=== PATIENT | female | born 1985 | race Caucasian/White ===

== ENCOUNTER → 2019-09-17 10:28 | Outpatient (CLI) | payer OTHER, SELFPAY ==
--- NOTE | 2019-09-17 10:37 | RAD_ITS ---
STUDY: X-RAY - RIGHT FOOT CLINICAL: Female, 34 years old. Lateral foot pain s/p running -- painful to bear weight TECHNIQUE: 3 view(s) of the foot. COMPARISON: None. FINDINGS: Normal talus, calcaneus, and tarsal bones. Normal visualized subtalar, talonavicular, calcaneocuboid, tarsal and tarsometatarsal articulations. Normal metatarsi. Normal metatarsophalangeal joint of the great toe. Normal tibial and fibular sesamoid bones. Normal interphalangeal joint of the great toe. Normal phalanges of the great toe. Normal second through fifth metatarsophalangeal joints. Normal interphalangeal joints and phalanges of the lesser toes. The soft tissue structures are unremarkable. RAD/Foot min 3 Views IMPRESSION: Normal x-ray examination of the foot. Electronically Signed: Franko Nino, at 10:56 EDT , Service support ,
== END ==
PROVIDERS: Visit Provider Emergency Medicine
DX: M79.671 Pain in right foot (principal)
CPT/HCPCS: 73630

== ENCOUNTER → 2020-03-27 08:06 | Outpatient (CLI) | payer OTHER, SELFPAY ==
[2020-03-27 12:57] LABS: Absolute Lymphocyte Count 2.72 X10^3/uL (0.83-4.51); Absolute Neutrophil Count 4.4 X10^3/uL (2.0-7.7); Basophil# 0.03 X10^3/uL; Basophil% 0.4 % (0-1); Eosinophil# 0.08 X10^3/uL; Hematocrit 42.1 % (37-47); Hemoglobin 13.2 g/dL (12.0-15.0); Lymphocyte # 2.72 X10^3/ul (4.0); Lymphocyte % 33.9 % (19-41); Mean Corp Hgb Conc 31.4 g/dL (32-36); Mean Corpuscular Hgb 29.7 pg (27.0-32.0); Mean Corpuscular Volume 94.6 fL (81-99); Mean Platelet Vol. 11.2 fl (6.2-12.0); Monocyte# 0.76 X10^3/uL; Monocyte% 9.5 % (0-10); NRBC Flagged by Analyzer 0 % (0-5); Neutrophil # 4.42 X10^3/uL (2.7-7.7); Platelet Count 335 K/mm3 (150-450); RBC Distribution Width CV 13.1 % (11.6-14.6); RBC Distribution Width SD 44.8 fl (35.1-43.9); Red Blood Count 4.45 M/mm3 (4.2-5.4)
[2020-03-27 13:09] LABS: ALB/GLOB Ratio 1.1 RATIO (0.9-2.4); AST(SGOT) 17 U/L (15-37); Alanine Aminotransfer ALT/SGPT 27 U/L (13-56); Albumin, Serum 4.1 g/dL (3.2-5.0); Alkaline Phosphatase 51 U/L (45-117); Anion Gap 4 (5-15); BUN 20 mg/dL (7-18); BUN/Creat Ratio 23.3 RATIO (10-20); Calcium,Total 9.1 mg/dL (8.5-10.1); Chloride 108 mmol/L (98-107); Creatinine, Serum 0.86 mg/dL (0.55-1.02); EST Glomerular Filtration Rate 81 mL/min (>60); Est Glom Filt Rate - Afr Amer 98 mL/min (>60); Globulin 3.7 g/dL (2.2-4.2); Glucose 91 mg/dL (74-106); Magnesium 2.1 mg/dL (1.6-2.6); Potassium 4.3 mmol/L (3.5-5.1); Protein, Total 7.8 g/dL (6.4-8.2); Sodium Level 140 mmol/L (136-145); Thyroid Stim Hormone (TSH) 5.66 uIU/mL (0.358-3.74)
[2020-03-27 19:02] LABS: T4 Free Direct 0.92 ng/dL (0.76-1.46)
== END ==
PROVIDERS: PCP Internal Medicine; Referring Provider Nurse Practitioner Family; Visit Provider Nurse Practitioner Family
DX: R00.0 Tachycardia, unspecified (principal); R06.02 Shortness of breath; R07.9 Chest pain, unspecified; R79.89 Other specified abnormal findings of blood chemistry; Z86.19 Personal history of other infectious and parasitic diseases
CPT/HCPCS: 36415; 80053; 83735; 84439; 84443; 85025

== ENCOUNTER → 2020-03-27 08:35 | Outpatient (CLI) | payer OTHER, SELFPAY ==
[2020-03-27 08:29] VITALS: BMI 28.1
--- NOTE | 2020-03-27 08:42 | EKG12_ITS ---
Test Reason : CHEST PRESSURE Blood Pressure : / mmHG Vent. Rate : 072 BPM Atrial Rate : 072 BPM P-R Int : 114 ms QRS Dur : 080 ms QT Int : 378 ms P-R-T Axes : 024 066 011 degrees QTc Int : 413 ms Normal sinus rhythm Normal ECG Confirmed by YESY FERRARI, ABDELRAHMAN ([id number]), sound editor NO SRIVASTAVA ([id number]) on 03/30/2020 1:25:59 PM Referred By: Miguel Hurt Confirmed By:ABDELRAHMAN HAYWARD MD
--- NOTE | 2020-03-27 08:42 | CT_ITS ---
STUDY: CTA CHEST REASON FOR EXAM: Female, 34 years old. SOB/CP COVID POSITIVE 3 WEEKS AGO RADIATION DOSAGE (If Supplied By Facility): CTDIvol = ( 11.05 ) mGy, DLP = ( 391.05 ) mGycm TECHNIQUE: The examination was performed with the intravenous administration of IV 100mL Isovue-370. Post-processing of the angiographic images was performed, with multiplanar reformation and 3D reconstruction. Individualized dose optimization techniques were used for this CT. COMPARISON: None. FINDINGS: Normal enhancement of the main pulmonary artery and right and left pulmonary arteries. Normal enhancement of the bilateral peripheral pulmonary arteries. There is no demonstrated pulmonary embolism. Normal thoracic aorta and visualized great vessels. There is no demonstrated aortic dissection. Normal heart and pericardium. Normal mediastinum. Normal hilar regions. Normal visualized trachea and bronchi. The lungs are well expanded. Normal pulmonary parenchyma. Normal pleura. Normal chest wall structures. Normal osseous structures. Normal visualized upper abdomen. CT/CTA Chest W/WO Contrast IMPRESSION: Normal CTA chest examination, without a demonstrated pulmonary embolism or arterial dissection. Electronically Signed: José Toro MD at 9:49 EST Tel , Service support ,
--- NOTE | 2020-03-27 09:39 | EKG12_ITS ---
Test Reason : CHEST PRESSURE Blood Pressure : / mmHG Vent. Rate : 072 BPM Atrial Rate : 072 BPM P-R Int : 114 ms QRS Dur : 080 ms QT Int : 364 ms P-R-T Axes : 031 066 005 degrees QTc Int : 398 ms Normal sinus rhythm Normal ECG Confirmed by YESY FERRARI, ABDELRAHMAN ([id number]), manager editorial JOHANNA HOLLIDAY ([id number]) on 03/31/2020 9:50:11 AM Referred By: Miguel Hurt Confirmed By:ABDELRAHMAN HAYWARD MD
[2020-03-27 09:54] LABS: D-Dimer Quantitative (DVT/PE) 0.35 FEU/ug/m (0.27-0.49)
== END ==
PROVIDERS: PCP Internal Medicine; Referring Provider Nurse Practitioner Family; Visit Provider Nurse Practitioner Family
DX: R07.9 Chest pain, unspecified (principal); R00.0 Tachycardia, unspecified; R06.00 Dyspnea, unspecified; Z86.19 Personal history of other infectious and parasitic diseases
CPT/HCPCS: 71275; 85379; 93005; Q9967

== ENCOUNTER → 2020-04-03 12:10 | Outpatient (CLI) | payer OTHER, SELFPAY ==
[2020-03-27 08:29] VITALS: BMI 28.1
== END ==
PROVIDERS: PCP Internal Medicine; Referring Provider Nurse Practitioner Family; Visit Provider Nurse Practitioner Family
DX: R07.9 Chest pain, unspecified (principal); R00.0 Tachycardia, unspecified; R06.00 Dyspnea, unspecified; E03.9 Hypothyroidism, unspecified
CPT/HCPCS: 93225; 93226

== ENCOUNTER 2020-04-12 18:01 | Observation (INO) | payer OTHER, SELFPAY ==
[2020-03-27 08:29] VITALS: BMI 28.1
[2020-04-12] VITALS (8 sets, daily range): BP systolic 113–140; BP diastolic 76–90; PULSE 69–92; RESP 14–18; TEMP 36.2–36.7; O2SAT 97–99; BMI 29.4; BMI 29.8
--- NOTE | 2020-04-12 18:15 | RAD_ITS ---
STUDY: X-RAY CHEST REASON FOR EXAM: Female, 34 years old. CHEST HEAVINESS AND TIGHTNESS, RADIATING INTO LEFT ARM TECHNIQUE: Frontal view COMPARISON: None. FINDINGS: The lungs are clear and expanded. There is no demonstrated pleural abnormality. Normal size heart. Normal mediastinum and ron. Normal visualized pulmonary arteries. Normal visualized aortic arch and descending thoracic aorta. Normal visualized thoracic spine. Normal visualized ribs, clavicles, and shoulders. There is no demonstrated abnormality of the visualized soft tissue structures of the upper abdomen. RAD/Chest 1 View (Portable) IMPRESSION: Normal x-ray examination of the chest. Electronically Signed: Ketan Ma DO at 19:50 EST Tel [phone], Service support ,
--- NOTE | 2020-04-12 18:15 | EKG12_ITS ---
Test Reason : CP Blood Pressure : / mmHG Vent. Rate : 093 BPM Atrial Rate : 093 BPM P-R Int : 122 ms QRS Dur : 086 ms QT Int : 348 ms P-R-T Axes : 067 076 016 degrees QTc Int : 432 ms Normal sinus rhythm Possible Left atrial enlargement Borderline ECG Confirmed by ERIN FERRARI, LV ([id number]), sound editor BRIDGETT JEFFRIES ([id number]) on 04/14/2020 9:19:34 AM Referred By: SIL Confirmed By:LV KHAN MD
[2020-04-12] MEDS: Aspirin 81 MG TAB.CHEW 324 MG PO (18:23)
[2020-04-12] MEDS: Ondansetron 4 MG/2 ML Vial IV (18:26)
[2020-04-12] MEDS: Morphine 4 MG/ML Syringe IV (18:26)
[2020-04-12] MEDS: 0.9% Normal Saline 1,000 ML 150 ML IV (18:26)
[2020-04-12 18:29] LABS: Absolute Lymphocyte Count 3.79 X10^3/uL (0.83-4.51); Absolute Neutrophil Count 4.3 X10^3/uL (2.0-7.7); Basophil# 0.05 X10^3/uL; Basophil% 0.5 % (0-1); Eosinophil# 0.13 X10^3/uL; Eosinophils% 1.4 % (0-5); Hematocrit 40.6 % (37-47); Hemoglobin 12.9 g/dL (12.0-15.0); Lymphocyte # 3.79 X10^3/ul (4.0); Lymphocyte % 40.7 % (19-41); Mean Corp Hgb Conc 31.8 g/dL (32-36); Mean Corpuscular Hgb 29.7 pg (27.0-32.0); Mean Corpuscular Volume 93.3 fL (81-99); Mean Platelet Vol. 10.5 fl (6.2-12.0); Monocyte# 1.01 X10^3/uL; Monocyte% 10.8 % (0-10); NRBC Flagged by Analyzer 0 % (0-5); Neutrophil # 4.31 X10^3/uL (2.7-7.7); Neutrophil % 46.4 % (47-70); Platelet Count 393 K/mm3 (150-450); RBC Distribution Width CV 13.1 % (11.6-14.6); RBC Distribution Width SD 45.1 fl (35.1-43.9); Red Blood Count 4.35 M/mm3 (4.2-5.4); White Blood Count 9.3 K/mm3 (4.4-11.0)
[2020-04-12 18:34] LABS: D-Dimer Quantitative (DVT/PE) 0.31 FEU/ug/m (0.27-0.49)
[2020-04-12 19:03] LABS: Anion Gap 5 (5-15); BUN 17 mg/dL (7-18); BUN/Creat Ratio 22.3 RATIO (10-20); Calcium,Total 8.4 mg/dL (8.5-10.1); Chloride 109 mmol/L (98-107); Creatinine, Serum 0.76 mg/dL (0.55-1.02); EST Glomerular Filtration Rate 92 mL/min (>60); Est Glom Filt Rate - Afr Amer 112 mL/min (>60); Estimated Creatinine Clearance 106.21 ml/min; Glucose 126 mg/dL (74-106); Potassium 3.7 mmol/L (3.5-5.1); Sodium Level 142 mmol/L (136-145); Thyroid Stim Hormone (TSH) 2.98 uIU/mL (0.358-3.74)
[2020-04-12 19:13] LABS: Internal QC Validated? YES +Cl - CLEAR BKGD
[2020-04-12 19:15] LABS: Pregnancy, Serum, hCG Quali. NEGATIVE Negative
--- NOTE | 2020-04-12 19:29 | ED.VISSUMM ---
- ER Visit Summary Date of Service: 04/12/20 Chief Complaint: Chest pain History of Present Illness: The patient is a [address] Villagran. 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 States that ever since then she has had intermittent chest pain. States that this is an intermittent pain that lasts hours at a time. Most recent episode began at 8:00 this morning while she was at rest. Says sharp squeezing pain with ration down her left arm. Is 9-10 at worst and 6 out of 10 currently. Is worsened by exertion. Is unchanged with breathing. Is relieved by nothing. She reports she is diaphoretic and short of breath with this. She also complains of lightheadedness and palpitations. Patient reports that she turned in her Holter monitor 6 days ago and began metoprolol 3 days ago. Physical Examination: Vitals: Stable. Afebrile. General: Well-nourished and well-developed. Head: Normocephalic atraumatic. Neck: Supple, no lymphadenopathy. No JVD. Nontender. Cardiovascular: Regular rate and rhythm. No murmurs. Respiratory: No respiratory distress. Clear to auscultation bilaterally. Abdominal: Soft, nontender, nondistended, normal bowel sounds. No guarding, rebound, or peritoneal signs. Back: Nontender. Extremities: Nontender, no edema. Skin: Normal color, no rash. Neurologic: Alert and oriented ?3. Cranial nerves II through XII are intact. Normal strength and sensation. Psych: Normal affect. Test Results: EKG is sinus at [address] depression inferiorly. This is unchanged from earlier this month. Troponin is negative. D-dimer is negative. test is negative. Chem-7 shows a chloride of 109, glucose 126, calcium 8.4. CBC shows segmented neutrophils of 46 lymphocytes of 11. TSH is 2.98. Chest x-ray is normal. Emergency Department Course and Treatment: Patient was treated with aspirin p.o. as well as morphine and Zofran IV. She is resting more comfortably. Treatment Plan: Patient was discussed with the hospitalist. She will be admitted for further evaluation and treatment. Disposition: Admitted in stable condition. Impression: 1. Chest pain. This note was generated with [employer] software. It may contain incorrect words, spelling, and punctuation that were not noted in review of the chart prior to signing
--- NOTE | 2020-04-12 19:50 | PCM.HP.STD ---
History of Present Illness Date of Admission: 04/12/20 Chief Complaint: Chest pain The patient is a 34 year old F with a PMH as below who presents to the hospital with chest pain. She was diagnosed with Covid on March 04 and since then has had intermittent episodes of chest pain with possible palpitations. She did have a Holter monitor as an outpatient which was completed about 6 days ago and she does not have the report yet. She says this morning she had chest pain that occurred while at rest and it was a squeezing pain that radiated down her left arm. She has not noticed any significant difference with exertion and she does have episodes of shortness of breath with it. Nothing is really made it better. In the ER EKG was unchanged from , with slight ST depressions in the inferior leads.. Initial troponin was unremarkable and her other lab work were normal. Past Medical History Allergies No Known Allergies Allergy (Unverified 03/26/20 15:43) Home Medications: Ambulatory Orders Medication Instructions Recorded multivitamin 1 tab PO DAILY 03/26/20 albuterol sulfate 90 mcg/actuation 1 - 2 puff INHALATION Q6H PRN #8.5 03/27/20 aerosol inhaler g aspirin 81 mg tablet,delayed 81 mg PO DAILY 04/08/20 release levothyroxine 25 mcg tablet 25 mcg PO DAILY #90 tab 04/08/20 metoprolol tartrate 25 mg tablet 12.5 mg PO BID #60 tab 04/08/20 Surgical History: Surgical History (Last Updated 03/26/20 @ 15:44 by Naya Espinal) Hx LEEP (loop electrosurgical excision procedure), cervix, O34.40, Z98.890 Smoking Status: Never smoker Alcohol: None Drugs: None - *Family History Maternal Family History: Family History (Last Updated 03/26/20 @ 15:47 by Naya Espinal) Father Hypertension Uncle Hypertension Thyroid disorder Mental disorders Aunt Heart disease Grandfather Heart disease Grandmother Heart disease Breast cancer Sister Blood clots Other Alcoholism Review of Systems Constitutional: Denies: Chills, Fever, Weight Change HEENT: Denies: Head Aches, Sinus Congestion, Sinus Drainage Cardiovascular: Reports: Chest Pain. Denies: Palpitations Respiratory: Reports: Shortness of Breath. Denies: Cough, Shortness of breath at rest, Sputum production Gastrointestinal: Denies: Abdominal Pain, Nausea, Vomiting Genitourinary: Denies: Dysuria Musculoskeletal: Denies: Joint Pain, Joint Tenderness Skin: Denies: Rash, Wounds Neurological: Denies: Numbness, Tingling, Focal weakness Psychiatric: Denies: Anxiety, Depression Hematologic/ Lymphatic: Denies: Easy Bruising, Easy Bleeding VTE Information - Inpt Only VTE Present on Admission: No - Physical Exam Vitals/I&O's: Vital Signs Temp Pulse Resp BP Pulse Ox 97.5 F L 87 16 113/76 98 04/12/20 19:19 04/12/20 19:19 04/12/20 19:19 04/12/20 19:19 04/12/20 19:19 Oxygen Delivery Method Room Air Weight: 193 lb 9.054 oz Body Mass Index (BMI) 29.4 General: Alert, Oriented x3, Cooperative, No apparent distress HEENT: Atraumatic, PERRLA, EOMI, Normocephalic Oral: Moist Mucosa Neck: Supple, No JVD Lungs: Clear to auscultation, Normal air movement, No rhonchi, No wheeze, No rales Cardiovascular: Regular rate, Regular Rhythm, Normal S1, Normal S2, No murmurs Abdomen: Soft, Non Tender, Non-Distended, No Hepato-splenomegaly Extremities: No edema, Capillary Refill Less than 3 Seconds Skin: No rashes, No breakdown Neurological: Neuro grossly intact, Sensory exam intact to light touch and pain Psych/Mental Status: Normal Affect, Appropriate Laboratory Results 04/12/20 18:00: D-Dimer Quant (PE/DVT) 0.31 04/12/20 18:00: Sodium Cancelled, Potassium Cancelled, Chloride Cancelled, Carbon Dioxide Cancelled, Anion Gap Cancelled, BUN Cancelled, Creatinine Cancelled, Estim Creat Clear Calc Cancelled, Est GFR (MDRD) Af Amer Cancelled, Est GFR (MDRD) Non-Af Cancelled, BUN/Creatinine Ratio Cancelled, Glucose Cancelled, Calcium Cancelled, Troponin I Cancelled, TSH Cancelled 04/12/20 18:00: Serum , Qual Cancelled 04/12/20 18:05: WBC 9.3, RBC 4.35, Hgb 12.9, Hct 40.6, MCV 93.3, MCH 29.7, MCHC 31.8 L, RDW Std Deviation 45.1 H, RDW Coeff of Samanta 13.1, Plt Count 393, MPV 10.5, Immature Gran % (Auto) 0.200, Neut % (Auto) 46.4 L, Lymph % (Auto) 40.7, [place] % (Auto) 10.8 H, Eos % (Auto) 1.4, Baso % (Auto) 0.5, Absolute Neuts (auto) 4.3, Absolute Lymphs (auto) 3.79, Nucleated RBC % 0 04/12/20 18:34: Sodium 142, Potassium 3.7, Chloride 109 H, Carbon Dioxide 28.0, Anion Gap 5, BUN 17, Creatinine 0.76, Estim Creat Clear Calc 106.21, Est GFR (MDRD) Af Amer 112, Est GFR (MDRD) Non-Af 92, BUN/Creatinine Ratio 22.3 H, Glucose 126 H, Calcium 8.4 L, Troponin I < 0.015, TSH 2.98 04/12/20 18:34: Serum , Qual NEGATIVE Current Medications Sodium Chloride () 1,000 mls @ 150 mls/hr IV .Q6H40M [facility] Last Admin: 04/12/20 18:26 Dose: 150 mls/hr Documented by: Assessment/Plan 1. Chest pain -She had an outpatient Holter monitor which has not been read yet, she says that her PCP told her that she had spent 7 hours in sinus tach but she is not sure if this was continuous or 7 hours total over the course of 2 days -We will obtain serial troponins -We will obtain an echo in the morning, if necessary can obtain a stress test and/or consult cardiology -She has a little bit of an elevated cholesterol, but there is no family history of significant cardiovascular or disease -Continue with aspirin and metoprolol 2. Hypothyroidism -TSH normal -Continue with Synthroid DVT: Low risk OBSV E&M: [id number] Initial observation care L2
--- NOTE | 2020-04-12 20:14 | EKG12_ITS ---
Test Reason : CP ADMIT Blood Pressure : / mmHG Vent. Rate : 070 BPM Atrial Rate : 070 BPM P-R Int : 114 ms QRS Dur : 074 ms QT Int : 398 ms P-R-T Axes : 020 070 011 degrees QTc Int : 429 ms Normal sinus rhythm Normal ECG Confirmed by YESY FERRARI, ABDELRAHMAN ([id number]), technical writer and editor BRIDGETT JEFFRIES ([id number]) on 04/15/2020 10:08:12 AM Referred By: DR CONNOR Confirmed By:ABDELRAHMAN HAYWARD MD
[2020-04-12] MEDS: Metoprolol Tartrate 25 MG Tablet 12.5 MG PO (22:02)
[2020-04-12] MEDS: MELATONIN 3 MG TABLET PO (22:03)
[2020-04-13] VITALS (11 sets, daily range): BP systolic 94–122; BP diastolic 62–75; PULSE 57–77; RESP 15–16; TEMP 36.8–36.9; O2SAT 98
[2020-04-13] MEDS: Nitroglycerin (INPATIENT USE) 0.4 MG TAB.SUBL SUBLINGUAL ×4 (00:21→05:02)
[2020-04-13] MEDS: hydrOXYzine 10 MG Tablet PO (02:35)
[2020-04-13] MEDS: Levothyroxine 25 MCG TABLET PO (05:06)
--- NOTE | 2020-04-13 05:55 | ECHOCS_ITS ---
Reason For Study: CP Procedure This was a 2D Doppler, Color Flow transthoracic echocardiogram. Contrast injection was performed. Residual artifact from Definity used on Stress Echo prior to 2D echo. Exam performed in department. Left Ventricle Normal LV size. Left ventricular systolic function is normal. The estimated ejection fraction is 65 %. Normal diastology for age. No regional wall motion abnormalities noted. Right Ventricle Normal RV size. Normal systolic function. Atria Normal left atrium. Normal right atrium. Mitral Valve Normal mitral valve. Tricuspid Valve Normal tricuspid valve. Mild tricuspid valve insufficiency. Pulmonary artery systolic pressure is 30 mmHg. Aortic Valve Normal aortic valve. Trisinus/trileaflet aortic valve. Pulmonic Valve Normal pulmonic valve. Great Vessels Normal aortic root. The pulmonary artery is normal size. Normal inferior vena cava. Pericardium/Pleural No pericardial effusion. Medication Diluted definity 2ml given slow IV push to enhance endocardial definition. MMode/2D Measurements & Calculations LVIDd: 4.2 cm IVSd: 1.0 cm Ao root diam: 2.7 cm LVIDs: 2.9 cm LVPWd: 0.93 cm LA dimension: 3.2 cm RVDd: 2.8 cm FS: 30.3 % LAV(MOD-bp): 39.7 ml LA A4 area: 15.5 cm2 RA A4 area: 14.9 cm2 LAV(MOD-bp) Indexed: 20.0 ml/m2 LAV(MOD-sp2): 37.7 ml LAV(MOD-sp4): 39.9 ml Time Measurements MV dec time: 0.25 sec Doppler Measurements & Calculations MV E max noe: 87.2 cm/sec Lat Peak E' Noe: 17.6 cm/sec Med Peak E' Noe: 15.3 cm/sec MV A max noe: 71.7 cm/sec E/E' lat: 5.0 E/E' med: 5.7 MV E/A: 1.2 MV V2 max: 100.1 cm/sec MV P1/2t max noe: 99.7 cm/sec Ao V2 max: 135.3 cm/sec MV max P.0 mmHg MV P1/2t: 42.2 msec Ao max P.3 mmHg MV V2 mean: 54.8 cm/sec MV dec slope: 690.9 cm/sec2 MV mean P.5 mmHg MV V2 VTI: 20.0 cm MVA(P1/2t): 5.2 cm2 LV V1 max: 118.1 cm/sec PA V2 max: 94.4 cm/sec TR max noe: 256.6 cm/sec LV V1 max P.6 mmHg TR max P.3 mmHg Interpretation Summary Normal LV size. Left ventricular systolic function is normal. The estimated ejection fraction is 65 %. Pulmonary artery systolic pressure is 30 mmHg. Normal diastology for age. Contrast injection was performed. Ordering Physician: Augustin Yung Performed By: Kenroy Zhou RCS
[2020-04-13 06:15] LABS: Absolute Lymphocyte Count 3.86 X10^3/uL (0.83-4.51); Absolute Neutrophil Count 3.7 X10^3/uL (2.0-7.7); Basophil# 0.04 X10^3/uL; Basophil% 0.5 % (0-1); Eosinophil# 0.09 X10^3/uL; Eosinophils% 1.1 % (0-5); Hematocrit 35.2 % (37-47); Hemoglobin 11.3 g/dL (12.0-15.0); Lymphocyte # 3.86 X10^3/ul (4.0); Lymphocyte % 46.3 % (19-41); Mean Corp Hgb Conc 32.1 g/dL (32-36); Mean Corpuscular Hgb 30.3 pg (27.0-32.0); Mean Corpuscular Volume 94.4 fL (81-99); Mean Platelet Vol. 9.8 fl (6.2-12.0); Monocyte# 0.65 X10^3/uL; Monocyte% 7.8 % (0-10); NRBC Flagged by Analyzer 0 % (0-5); Neutrophil # 3.67 X10^3/uL (2.7-7.7); Neutrophil % 43.9 % (47-70); Platelet Count 308 K/mm3 (150-450); RBC Distribution Width CV 13.2 % (11.6-14.6); RBC Distribution Width SD 45.4 fl (35.1-43.9); Red Blood Count 3.73 M/mm3 (4.2-5.4); White Blood Count 8.3 K/mm3 (4.4-11.0)
[2020-04-13 06:42] LABS: Anion Gap 2 (5-15); BUN 11 mg/dL (7-18); BUN/Creat Ratio 16.7 RATIO (10-20); Calcium,Total 8.5 mg/dL (8.5-10.1); Chloride 108 mmol/L (98-107); Cholesterol 205 mg/dL (200); Creatinine, Serum 0.66 mg/dL (0.55-1.02); EST Glomerular Filtration Rate 110 mL/min (>60); Est Glom Filt Rate - Afr Amer 133 mL/min (>60); Glucose 89 mg/dL (74-106); High Density Lipoprotein 53 mg/dL; Potassium 3.6 mmol/L (3.5-5.1); Sodium Level 137 mmol/L (136-145); Triglycerides 74 mg/dL; Very Low Density Lipoprotein 15 mg/dL (5-40)
--- NOTE | 2020-04-13 08:18 | STEWCON_ITS ---
Stress Results Protocol: Peewee Protocol WITH DEFINITY Maximum Predicted HR: 187 bpm Target HR: 159 bpm % Maximum Predicted HR: 96 % DurationHeart Rate Stage (mm:ss) (bpm) BP Comment baseline 68 108/70dull chest ache 3 out of 10, my left arm feels funny stage 1 3:00 125 110/68chest pressure 3/10 stage 2 3:00 144 110/70chest pressure 3/10 stage 3 3:00 169 112/74chest pressure 5/10, mild shortness of breath stage 4 0:51 179 / chest pressure 7/10, mild shortness of breath recovery 100 110/70chest pressure 6/10, shortness of breath resolved Stress Duration: 9:51 mm:ss Maximum Stress HR: 179 bpm Baseline Echocardiogram Findings Stress Echo Wall motion Data Resting WM Intermediate WM Stress WM Interpretation Summary Exercise stress echo. 34-year-old lady with a history of chest pain. Stress protocol: Resting EKG demonstrates normal sinus rhythm with a rate of 70 bpm no acute changes noted. The patient exercised according to regular Peewee protocol for a total duration of 9 minutes and 51 seconds. Patient completed 51 seconds into stage IV of the Peewee protocol. The maximum heart rate attained was 179 bpm which was 96% of max impacted heart rate the maximum workload was 12.9 metabolic equivalents. At rest there were no ST or T wave changes noted suggest ischemia peak exercise upsloping ST changes only were noted we did not meet the criteria for ischemia. No clinical angina was noted. The patient had a dull chest ache which was present at the beginning and persisted throughout with mild shortness of breath. No definitive angina was noted. Stress echocardiogram. The resting echocardiographic images obtained with Definity enhancement demonstrated an ejection fraction of 55% no wall motion abnormalities were noted the peak ejection fraction was noted to be 65 to 70% with no wall motion abnormalities present. No clinical ischemia was present. Conclusion: Normal exercise stress echo with no EKG or echocardiographic criteria for ischemia at a high workload. Excellent functional capacity. Chest discomfort of unknown significance. Ordering Physician: Karoline Metzger Referring Physician: Dr. Metzger Performed By: Kenroy Zhou RCS
[2020-04-13] MEDS: Aspirin E.C. 81 MG Tablet PO (08:44)
[2020-04-13] MEDS: Metoprolol Tartrate 25 MG Tablet 12.5 MG PO (11:04)
[2020-04-13] MEDS: Ibuprofen 600 MG Tablet PO (11:50)
[2020-04-13] MEDS: Acetaminophen 325 MG Tablet 650 MG PO (12:40)
--- NOTE | 2020-04-13 13:59 | DCINST_ITS ---
You will use the following diet at home:: Cardiac Your food should be the consistency of: Regular Your liquids should be the consistency of: Regular/Thin Discharge Activity: Return to Normal Activity Call your doctor if you observe: Shortness of breath, Chest pain Allergies/Adverse Reactions: Allergies No Known Allergies Allergy (Unverified 03/26/20 15:43) Medications to take at Discharge multivitamin 1 tab PO DAILY 03/26/20 albuterol sulfate 90 mcg/actuation aerosol inhaler 1 - 2 puff INHALATION Q6H PRN #8.5 g 03/27/20 aspirin 81 mg tablet,delayed release 81 mg PO DAILY 04/08/20 levothyroxine 25 mcg tablet 25 mcg PO DAILY #90 tab 04/08/20 metoprolol tartrate 25 mg tablet 12.5 mg PO BID #60 tab 04/08/20 Pantoprazole Sodium [Protonix] 40 mg PO DAILY #30 tab 04/13/20 The following prescriptions were given: Pantoprazole Sodium [Protonix] 40 mg PO DAILY #30 tab Transmission Status: Pending to [facility] Primary Care Physician: Phoenix Villagran MD [Primary Care Provider] - Please follow up with your Primary Care Physician in: 1 week Test Results: Test results from this visit will be discussed in further detail at your follow- up appointment, if applicable. Proposed Discharge Date: 04/13/20
--- NOTE | 2020-04-13 14:02 | DS.PCM_ITS ---
<Phil Harding - Last Filed: 04/13/20 14:02> Discharge Date and Diagnosis Date of Admission: 04/12/20 Date of Discharge: 04/13/20 - Primary Discharge Diagnosis Acute Problems: Chest pain - musculoskeletal Hospital Course and Treatment Imaging Results: DIAGNOSTICS: Stress echocardiogram. The resting echocardiographic images obtained with Definity enhancement demonstrated an ejection fraction of 55% no wall motion abnormalities were noted the peak ejection fraction was noted to be 65 to 70% with no wall motion abnormalities present. No clinical ischemia was present. Conclusion: Normal exercise stress echo with no EKG or echocardiographic criteria for ischemia at a high workload. Excellent functional capacity. Chest discomfort of unknown significance. RAD/Chest 1 View (Portable) IMPRESSION: Normal x-ray examination of the chest. Operations: None Procedures: Stress test Summary of Care Provided: Hospital Course: The patient is a 34 year old F with pmhx of hypothyroidism, nonspecific tachycardia, who presented to the ER with c/o chest pain. Since she had covid in february she has had intermittent chest pain. She had palpitations as well and had completed an outpatient holter monitor. Reportedly this showed sinus tachy and her PCP placed her on metoprolol. She was also found to have a mildly elevated TSH with normal t4 and was placed on synthroid. The patient reported that she had chest aching at rest and sometimes left arm pain and numbness. She had an EKG with no acute changes - slight ST depression in the inferior lead that was not new. Troponin was negative. CXR was clear. D Dimer was negative. She had recently had a CTA chest which was negative. She was admitted to the PCU and placed on tele. No events on tele. Trop neg x 3. The following day she had a stress echo which was negative. She reported that she would have chest pain when laying down in bed, and that she would wake up with a cough and mucus drainage, and also had some tenderness in the epigastric region on exam. She was therefore placed on a trial of protonix. Also of note she felt confident that she did not have any significant worsening of anxiety and no stressful events recently. She did not feel anxiety was a contributing factor to her chest pain. She will need follow up with her PCP in 1 week. She was discharged home in stable condition. This patient was seen by Phil Harding PA-C under the supervision of Dr. Metzger [] - Physical Exam Vitals/I&O's: Vital Signs Temp Pulse Resp BP Pulse Ox 98.5 F 77 15 115/71 98 04/13/20 08:45 04/13/20 11:04 04/13/20 08:45 04/13/20 11:04 04/13/20 08:45 Oxygen Delivery Method Room Air Weight: 196 lb 3.382 oz Body Mass Index (BMI) 29.8 Intake and Output for Last 24 Hours 04/11/20 04/12/20 04/13/20 23:59 23:59 23:59 Intake Total 1247.5 / 1247.5 900 / 900 Balance 1247.5 / 1247.5 900 / 900 General: Alert, Oriented x3, Cooperative HEENT: Atraumatic, PERRLA, EOMI, Normocephalic Neck: Supple, No JVD, Negative Carotid Bruits Lungs: Clear to auscultation, Normal air movement Cardiovascular: Regular rate, No murmurs Abdomen: Bowel Sounds Present, Soft, Non Tender Extremities: No edema, Capillary Refill Less than 3 Seconds Skin: No rashes, No breakdown Musculoskeletal: No Tenderness to Palpation of Joints or Extremities Neurological: Cranial nerves II-XII grossly intact Psych/Mental Status: Normal Affect, Appropriate, Alert and oriented to time, place, person, mood and affect Laboratory Results 04/12/20 18:00: D-Dimer Quant (PE/DVT) 0.31 04/12/20 18:00: Sodium Cancelled, Potassium Cancelled, Chloride Cancelled, Carbon Dioxide Cancelled, Anion Gap Cancelled, BUN Cancelled, Creatinine Cancelled, Estim Creat Clear Calc Cancelled, Est GFR (MDRD) Af Amer Cancelled, Est GFR (MDRD) Non-Af Cancelled, BUN/Creatinine Ratio Cancelled, Glucose Cancelled, Calcium Cancelled, Troponin I Cancelled, TSH Cancelled 04/12/20 18:00: Serum , Qual Cancelled 04/12/20 18:05: WBC 9.3, RBC 4.35, Hgb 12.9, Hct 40.6, MCV 93.3, MCH 29.7, MCHC 31.8 L, RDW Std Deviation 45.1 H, RDW Coeff of Samanta 13.1, Plt Count 393, MPV 10.5, Immature Gran % (Auto) 0.200, Neut % (Auto) 46.4 L, Lymph % (Auto) 40.7, Newberry % (Auto) 10.8 H, Eos % (Auto) 1.4, Baso % (Auto) 0.5, Absolute Neuts (auto) 4.3, Absolute Lymphs (auto) 3.79, Nucleated RBC % 0 04/12/20 18:34: Sodium 142, Potassium 3.7, Chloride 109 H, Carbon Dioxide 28.0, Anion Gap 5, BUN 17, Creatinine 0.76, Estim Creat Clear Calc 106.21, Est GFR (MDRD) Af Amer 112, Est GFR (MDRD) Non-Af 92, BUN/Creatinine Ratio 22.3 H, Glucose 126 H, Calcium 8.4 L, Troponin I < 0.015, TSH 2.98 04/12/20 18:34: Serum , Qual NEGATIVE 04/12/20 21:39: Troponin I < 0.015 04/13/20 00:18: Troponin I < 0.015 04/13/20 06:02: WBC 8.3, RBC 3.73 L, Hgb 11.3 L, Hct 35.2 L, MCV 94.4, MCH 30.3, MCHC 32.1, RDW Std Deviation 45.4 H, RDW Coeff of Samanta 13.2, Plt Count 308, MPV 9.8, Immature Gran % (Auto) 0.400, Neut % (Auto) 43.9 L, Lymph % (Auto) 46.3 H, Newberry % (Auto) 7.8, Eos % (Auto) 1.1, Baso % (Auto) 0.5, Absolute Neuts (auto) 3.7, Absolute Lymphs (auto) 3.86, Nucleated RBC % 0 04/13/20 06:02: Sodium 137, Potassium 3.6, Chloride 108 H, Carbon Dioxide 27.0, Anion Gap 2 L, BUN 11, Creatinine 0.66, Estim Creat Clear Calc 122.30, Est GFR (MDRD) Af Amer 133, Est GFR (MDRD) Non-Af 110, BUN/Creatinine Ratio 16.7, Glucose 89, Calcium 8.5, Triglycerides 74, Cholesterol 205 H, LDL Cholesterol 137 H, VLDL Cholesterol 15, HDL Cholesterol 53 Current Medications Acetaminophen (Acetaminophen 325 Mg Tablet) 650 mg PO Q6H PRN PRN PRN Reason: HEADACHE Last Admin: 04/13/20 12:40 Dose: 650 mg Documented by: Aspirin (Aspirin E.C. 81 Mg Tablet) [facility] Last Admin: 04/13/20 08:44 Dose: 81 mg Documented by: Hydroxyzine HCl (Hydroxyzine 10 Mg Tablet) 10 mg PO 4X/DAY PRN PRN PRN Reason: ANXIETY Last Admin: 04/13/20 02:35 Dose: 10 mg Documented by: Ibuprofen (Ibuprofen 600 Mg Tablet) 600 mg PO Q8 PRN PRN Reason: HEADACHE Last Admin: 04/13/20 11:50 Dose: 600 mg Documented by: Levothyroxine Sodium (Levothyroxine 25 Mcg Tablet) 25 mcg PO DAILY@0600 [facility] Last Admin: 04/13/20 05:06 Dose: 25 mcg Documented by: Melatonin (Melatonin 3 Mg Tablet) 3 mg PO QHS PRN PRN PRN Reason: INSOMNIA Last Admin: 04/12/20 22:03 Dose: 3 mg Documented by: Metoprolol Tartrate (Metoprolol Tartrate 25 Mg Tablet) 12.5 mg PO BID [facility] Last Admin: 04/13/20 11:04 Dose: 12.5 mg Documented by: Nitroglycerin (Nitroglycerin (Inpatient Use) 0.4 Mg Tab.Subl) 0.4 mg SUBLINGUAL Q5M PRN PRN Reason: CARDIAC/CHEST PAIN Last Admin: 04/13/20 05:02 Dose: 0.4 mg Documented by: Ondansetron HCl (Ondansetron 4 Mg/2 Ml Vial) 4 mg IV Q8H PRN PRN PRN Reason: NAUSEA/VOMITING Sodium Chloride (0.9% Saline Lock 10 Ml Syringe) 10 - 40 ml IV UD PRN PRN Reason: SALINE FLUSH Discharge Diet: Low fat/ Low Cholesterol, 2000 mg Sodium Diet Discharge Activity: Return to Normal Activity Call your doctor if you observe: Shortness of breath, Chest pain Home Medications: Medications to take at Discharge multivitamin 1 tab PO DAILY 03/26/20 albuterol sulfate 90 mcg/actuation aerosol inhaler 1 - 2 puff INHALATION Q6H PRN #8.5 g 03/27/20 aspirin 81 mg tablet,delayed release 81 mg PO DAILY 04/08/20 levothyroxine 25 mcg tablet 25 mcg PO DAILY #90 tab 04/08/20 metoprolol tartrate 25 mg tablet 12.5 mg PO BID #60 tab 04/08/20 Pantoprazole Sodium [Protonix] 40 mg PO DAILY #30 tab 04/13/20 Following Prescriptions Were Given to Patient: Pantoprazole Sodium [Protonix] 40 mg PO DAILY #30 tab Transmission Status: Received by [facility] Primary Care Physician: Phoenix Villagran MD [Primary Care Provider] - Please follow up with your Primary Care Physician in: 1 week Disposition: Home Minutes spent on discharge:: 35 Patient Condition:: Stable Medical Necessity - Tobacco Use Smoking Status: Never smoker Meaningful Use Info Meaningful Use Diagnoses (Choose all that apply): None applicable <Karoline Metzger - Last Filed: 04/13/20 17:49> Hospital Course and Treatment Summary of Care Provided: This patient was seen in conjunction with FRANCISCO Sykes. I have independently interviewed and examined the patient and reviewed pertinent historical, laboratory, and other data. Please refer to FRANCISCO Sykes note for his patient's presentation, findings, and recommendations. I have reviewed and his note and concur with his documentation 34-year-old with past medical history of hypothyroidism, recently diagnosed with sinus tachycardia on Holter monitor comes in with complaints of chest pain. She had COVID-19 infection a month ago and has since had dull chest discomfort or radiates to her arm with numbness. Headache admitting EKG showed no acute ST-T changes. Troponins were negative. Chest x-ray was negative. D-dimer was negative. She was admitted to telemetry bed, no events on telemetry. She underwent a stress echo that did not show any abnormality. On the day of discharge, patient was seen and examined. All have results were discussed. Patient was reassured. Will be given a trial of PPI. From recommended to continue taking aspirin, baby aspirin for at least a month. She was encouraged to continue to remain active Physical Exam: Gen: Comfortable, not pale, not jaundiced CVS:HS I +II, regular, no murmurs RESP: CTA GI: BS present and normal, soft, nontender, no palpable organs EXT:No edema - Physical Exam Vitals/I&O's: Vital Signs Temp Pulse Resp BP Pulse Ox 98.3 F 70 15 122/75 H 98 11/30/20 14:14 04/13/20 14:59 04/13/20 14:14 04/13/20 14:14 04/13/20 14:14 Oxygen Delivery Method Room Air Weight: 89 kg Body Mass Index (BMI) 29.8 Intake and Output for Last 24 Hours 04/11/20 04/12/20 04/13/20 23:59 23:59 23:59 Intake Total 1247.5 / 1247.5 900 / 900 Balance 1247.5 / 1247.5 900 / 900 Laboratory Results 04/12/20 18:00: D-Dimer Quant (PE/DVT) 0.31 04/12/20 18:00: Sodium Cancelled, Potassium Cancelled, Chloride Cancelled, Carbon Dioxide Cancelled, Anion Gap Cancelled, BUN Cancelled, Creatinine Cancelled, Estim Creat Clear Calc Cancelled, Est GFR (MDRD) Af Amer Cancelled, Est GFR (MDRD) Non-Af Cancelled, BUN/Creatinine Ratio Cancelled, Glucose Cancelled, Calcium Cancelled, Troponin I Cancelled, TSH Cancelled 04/12/20 18:00: Serum , Qual Cancelled 04/12/20 18:05: WBC 9.3, RBC 4.35, Hgb 12.9, Hct 40.6, MCV 93.3, MCH 29.7, MCHC 31.8 L, RDW Std Deviation 45.1 H, RDW Coeff of Samanta 13.1, Plt Count 393, MPV 10.5, Immature Gran % (Auto) 0.200, Neut % (Auto) 46.4 L, Lymph % (Auto) 40.7, Newberry % (Auto) 10.8 H, Eos % (Auto) 1.4, Baso % (Auto) 0.5, Absolute Neuts (auto) 4.3, Absolute Lymphs (auto) 3.79, Nucleated RBC % 0 04/12/20 18:34: Sodium 142, Potassium 3.7, Chloride 109 H, Carbon Dioxide 28.0, Anion Gap 5, BUN 17, Creatinine 0.76, Estim Creat Clear Calc 106.21, Est GFR (MDRD) Af Amer 112, Est GFR (MDRD) Non-Af 92, BUN/Creatinine Ratio 22.3 H, Glucose 126 H, Calcium 8.4 L, Troponin I < 0.015, TSH 2.98 04/12/20 18:34: Serum , Qual NEGATIVE 04/12/20 21:39: Troponin I < 0.015 04/13/20 00:18: Troponin I < 0.015 04/13/20 06:02: WBC 8.3, RBC 3.73 L, Hgb 11.3 L, Hct 35.2 L, MCV 94.4, MCH 30.3, MCHC 32.1, RDW Std Deviation 45.4 H, RDW Coeff of Samanta 13.2, Plt Count 308, MPV 9.8, Immature Gran % (Auto) 0.400, Neut % (Auto) 43.9 L, Lymph % (Auto) 46.3 H, Newberry % (Auto) 7.8, Eos % (Auto) 1.1, Baso % (Auto) 0.5, Absolute Neuts (auto) 3.7, Absolute Lymphs (auto) 3.86, Nucleated RBC % 0 04/13/20 06:02: Sodium 137, Potassium 3.6, Chloride 108 H, Carbon Dioxide 27.0, Anion Gap 2 L, BUN 11, Creatinine 0.66, Estim Creat Clear Calc 122.30, Est GFR (MDRD) Af Amer 133, Est GFR (MDRD) Non-Af 110, BUN/Creatinine Ratio 16.7, Glucose 89, Calcium 8.5, Triglycerides 74, Cholesterol 205 H, LDL Cholesterol 137 H, VLDL Cholesterol 15, HDL Cholesterol 53 OBSV E&M: [id number] Observation care discharge
--- NOTE | 2020-04-13 14:36 | CHAPLAIN ---
Type of Pastoral Visit _x__ Initial Visit ___ Follow-up Visit ___ On-call Visit ___ General Patient Visit ___ Spiritual Assessment ___ Family Conference ___ Bereavement ___ Rapid Response ___ Code Blue ___ Other (describe below) Pastoral Care Referral From _x__ Patient ___ Family ___ Nurse ___ Physician ___ Catalyst Operator Chief ___ Saute Chef ___ Other (describe below) Sacrament/Intervention _x__ Active listening ___ Anointing ___ Caodaism ___ Bereavement ___ Communion ___ Nery exploration ___ ___ Life review _x__ Prayer ___ Reconciliation ___ Sacrament of Sick _x__ Supportive presence ___ Wedding ___ Other (describe below) Pastoral Comments
== END 2020-04-13 13:59 | disposition home or self-care (01) ==
LOC: ED 18:22 → PCU 20:28
PROVIDERS: Admitting Provider Family Medicine; Emergency Provider Emergency Medicine; PCP Internal Medicine; Visit Provider Internal Medicine
DX: R07.89 Other chest pain (principal); E03.9 Hypothyroidism, unspecified; E78.00 Pure hypercholesterolemia, unspecified; R00.2 Palpitations; M79.602 Pain in left arm; R20.0 Anesthesia of skin; Z79.899 Other long term (current) drug therapy; Z79.82 Long term (current) use of aspirin; Z86.19 Personal history of other infectious and parasitic diseases
CPT/HCPCS: 36415; 71045; 80048; 80061; 84443; 84484; 84703; 85025; 85379; 93005; 93017; 93306; 93350; 96361; 96374; 96375; 99218; 99285; J7030; Q9957; A4216; C8928; C8929; G0378; J2405

== ENCOUNTER → 2020-04-22 14:06 | Outpatient (CLI) | payer OTHER, SELFPAY ==
[2020-04-22 14:06] VITALS: BMI 28.1
[2020-04-22 15:39] LABS: Hematocrit 38.5 % (37-47); Mean Corp Hgb Conc 31.2 g/dL (32-36); Mean Corpuscular Hgb 29.6 pg (27.0-32.0); Mean Corpuscular Volume 94.8 fL (81-99); Mean Platelet Vol. 10.7 fl (6.2-12.0); Platelet Count 347 K/mm3 (150-450); RBC Distribution Width CV 13.2 % (11.6-14.6); RBC Distribution Width SD 46.4 fl (35.1-43.9); Red Blood Count 4.06 M/mm3 (4.2-5.4); White Blood Count 6.9 K/mm3 (4.4-11.0)
[2020-04-22 16:01] LABS: Ferritin 16 ng/mL (8-252); Iron 82 ug/dL (50-170); Iron Binding Capacity,Total 334 ug/dL (250-450); PERCENT IRON SATURATION 24.6 % (15.0-55.0)
[2020-04-23 06:47] LABS: SARS-COV-2 TOTAL ABS Reactive (Nonreactive)
== END ==
PROVIDERS: PCP Internal Medicine; Referring Provider Nurse Practitioner Family; Visit Provider Nurse Practitioner Family
DX: U07.1 COVID-19 (principal); D50.9 Iron deficiency anemia, unspecified
CPT/HCPCS: 36415; 82728; 83540; 83550; 85027; 86769

== ENCOUNTER → 2020-07-30 09:29 | Outpatient (CLI) | payer OTHER, SELFPAY ==
[2020-07-30 09:08] VITALS: BMI 29.6
[2020-07-30 12:56] LABS: Thyroid Stim Hormone (TSH) 4.01 uIU/mL (0.358-3.74)
== END ==
PROVIDERS: PCP Internal Medicine; Referring Provider Nurse Practitioner Family; Visit Provider Nurse Practitioner Family
DX: R07.9 Chest pain, unspecified (principal); E03.9 Hypothyroidism, unspecified; R00.0 Tachycardia, unspecified; R06.00 Dyspnea, unspecified
CPT/HCPCS: 36415; 84439; 84443

== ENCOUNTER → 2021-01-12 14:03 | Outpatient (CLI) | payer OTHER, SELFPAY ==
[2021-01-12 15:38] LABS: Thyroid Stim Hormone (TSH) 1.35 uIU/mL (0.358-3.74)
== END ==
PROVIDERS: PCP Internal Medicine; Referring Provider Nurse Practitioner Family; Visit Provider Nurse Practitioner Family
DX: E03.9 Hypothyroidism, unspecified (principal)
CPT/HCPCS: 36415; 84443

== ENCOUNTER → 2021-03-08 16:06 | Outpatient (CLI) | payer OTHER, SELFPAY ==
--- NOTE | 2021-03-08 16:08 | RAD_ITS ---
HISTORY: chest pain. TECHNIQUE: XR Chest 2 Views. # of images incl. paperwork: 2. COMPARISON: 04/12/2020. FINDINGS: CARDIOMEDIASTINAL STRUCTURES: Cardiac silhouette not enlarged. Mediastinal contour unremarkable. LUNGS: Radiographically clear. PLEURA: No pleural effusion or pneumothorax. OSSEOUS STRUCTURES: Unremarkable. RAD/Chest PA and Lateral IMPRESSION: No radiographic evidence of acute cardiopulmonary disease. at 0940 Reported and signed by: Harmony Rodriguez MD Electronically Signed: Harmony Rodriguez MD at 9:39 EDT Tel , Service support ,
== END ==
PROVIDERS: PCP Internal Medicine; Visit Provider Physician Assistant
DX: R07.9 Chest pain, unspecified (principal)
CPT/HCPCS: 71046

== ENCOUNTER 2021-06-08 08:56 | Outpatient (CLI) | payer OTHER, SELFPAY ==
[2021-06-08 12:19] LABS: Absolute Lymphocyte Count 2.29 X10^3/uL (0.83-4.51); Absolute Neutrophil Count 4.4 X10^3/uL (2.0-7.7); Basophil# 0.03 X10^3/uL; Basophil% 0.4 % (0-1); Eosinophil# 0.07 X10^3/uL; Hematocrit 38.6 % (37-47); Hemoglobin 12.6 g/dL (12.0-15.0); Lymphocyte # 2.29 X10^3/ul (0.83-4.51); Lymphocyte % 31.2 % (19-41); Mean Corp Hgb Conc 32.6 g/dL (32-36); Mean Corpuscular Hgb 29.9 pg (27.0-32.0); Mean Corpuscular Volume 91.7 fL (81-99); Mean Platelet Vol. 10.8 fl (6.2-12.0); Monocyte# 0.58 X10^3/uL; Monocyte% 7.9 % (0-10); NRBC Flagged by Analyzer 0 % (0-5); Neutrophil # 4.37 X10^3/uL (2.7-7.7); Neutrophil % 59.4 % (47-70); Platelet Count 372 K/mm3 (150-450); RBC Distribution Width CV 13.2 % (11.6-14.6); RBC Distribution Width SD 44.9 fl (35.1-43.9); Red Blood Count 4.21 M/mm3 (4.2-5.4); White Blood Count 7.4 K/mm3 (4.4-11.0)
[2021-06-08 12:34] LABS: Thyroid Stim Hormone (TSH) 1.78 uIU/mL (0.358-3.74)
== END 2021-06-08 23:59 | disposition short-term general hospital (02) ==
LOC: BIMLAB 08:57
PROVIDERS: PCP Internal Medicine; Visit Provider Internal Medicine
DX: L65.9 Nonscarring hair loss, unspecified (principal)
CPT/HCPCS: 36415; 84443; 85025

== ENCOUNTER → 2021-12-17 | Outpatient (CLI) | payer OTHER, SELFPAY ==
[2021-12-17 13:01] LABS: Cholesterol 204 mg/dL (200); High Density Lipoprotein 51 mg/dL; Thyroid Stim Hormone (TSH) 2.13 uIU/mL (0.358-3.74); Triglycerides 117 mg/dL; Very Low Density Lipoprotein 23 mg/dL (5-40)
== END | disposition home or self-care (01) ==
PROVIDERS: PCP Internal Medicine; Referring Provider Nurse Practitioner Family; Visit Provider Nurse Practitioner Family
DX: Z00.00 Encounter for general adult medical examination without abnormal findings (principal); E03.9 Hypothyroidism, unspecified
CPT/HCPCS: 36415; 80061; 84443